=== PATIENT | female | born 1985 | race Two or more races ===

== ENCOUNTER 2021-10-24 09:55 | Outpatient (REF) | payer OTHER, SELFPAY ==
--- NOTE | ~2021-10-24 | CT_ITS ---
EXAMINATION: CT HEAD WITHOUT CONTRAST CLINICAL INFORMATION: 35-year-old with migraines. COMPARISON: None TECHNIQUE: Contiguous axial imaging was performed from the skull base to vertex without intravenous administration of contrast. This CT examination was performed using dose optimization techniques as appropriate, variously including the following: *Automated exposure control *Adjustment of mA and/or kV according to patient size (this includes techniques or standardized protocols for targeted exams where dose is matched to indication/reason for exam; i.e. extremities or head) *Use of iterative reconstruction technique DLP: 723 mGy-cm FINDINGS: BRAIN VOLUME: Within normal limits within the limitations of a qualitative assessment. STRUCTURAL: No malformations. BRAIN AND MENINGES: There is no evidence for hemorrhage, extra-axial fluid collection, acute territorial infarct, space-occupying process or mass effect. There is a 5 mm triangular-shaped focus of hypodensity within the subcortical left parietal white matter which is nonspecific. Remainder the brain parenchyma is normal in attenuation. VENTRICLES AND SUBARACHNOID SPACES: The ventricular system and subarachnoid spaces are within normal limits without hydrocephalus. ORBITAL STRUCTURES: Grossly unremarkable within the limitations of the study. OSSEOUS STRUCTURES, SINUSES/MASTOIDS, EXTRACRANIAL SOFT TISSUES: There is a 1 cm probable retention cyst in the left maxillary sinus. There are some retained partially aerosolized secretions layering in the dependent portion of the left sphenoid sinus. Visualized mastoids and middle ear cavities are unopacified. Bony structures are otherwise intact. Visualized extracranial soft tissue structures are grossly unremarkable. CT/CT head/brain wo con IMPRESSION: 1. No acute intracranial process identified. 2. Nonspecific small focus of left parietal subcortical white matter hypodensity of indeterminate etiology and clinical significance. Suggest MRI of the brain without and with contrast to further assess this.
== END 2021-10-24 09:56 | disposition home or self-care (01) ==
LOC: HO.CT 09:55
PROVIDERS: PCP Internal Medicine; Visit Provider Psychiatry & Neurology Neurology
DX: G43.909 Migraine, unspecified, not intractable, without status migrainosus (principal)
CPT/HCPCS: 70450

== ENCOUNTER 2023-08-03 11:36 | Outpatient (REF) | payer OTHER, SELFPAY ==
[2023-08-03 13:07] LABS: Erythrocyte Sedimentation Rate 16 MM/HR (0-20)
[2023-08-07 13:58] LABS: Anti Nuclear Antibody Screen NEGATIVE (NEGATIVE)
== END 2023-08-03 11:37 | disposition home or self-care (01) ==
LOC: HO.LAB 11:36
PROVIDERS: Visit Provider Psychiatry & Neurology Neurology
DX: I73.00 Raynaud's syndrome without gangrene (principal)
CPT/HCPCS: 36415; 85652; 86038